=== PATIENT | male | born 1990 | race African-American/Black ===

== ENCOUNTER 2021-03-01 06:23 | Emergency (ER) | payer SELFPAY ==
[~2021-03-01] VITALS: Ht 190.5 cm; Wt 130.0 kg
[2021-03-01 06:25] VITALS: BP 126/85
[2021-03-01] MEDS ORDERED: DIPH,PERTUSS(ACELL),TET VAC/PF 0.5 ML IM-VACC ONE ×2 (06:49→07:00)
[2021-03-01] MEDS ORDERED: LIDOCAINE-MPF 1%, 5ML ONE (06:49)
--- NOTE | 2021-03-01 06:53 | NUR ---
RAD IN ROOM.
[2021-03-01] MEDS ORDERED: LIDOCAINE-MPF 1%, 5ML INFIL ONE (07:00)
--- NOTE | 2021-03-01 07:01 | NUR ---
ROMELIA MARTIN AT BEDSIDE.
[2021-03-01] MEDS ORDERED: NEOSPORIN OINT. PKT 1 PACKET ONE (07:41)
--- NOTE | 2021-03-01 08:02 | NUR ---
Patient given discharge instructions and they have confirmed that they understand the instructions. Patient ambulatory with steady gait.
== END 2021-03-01 08:03 | disposition home or self-care (01) ==
LOC: ED 08:00
DX: S81.811A Laceration without foreign body, right lower leg, initial encounter (principal); X58.XXXA Exposure to other specified factors, initial encounter; Y93.89 Activity, other specified; Y92.89 Other specified places as the place of occurrence of the external cause; Y99.8 Other external cause status
CPT/HCPCS: 12032; 90471; 90715; 99284

== ENCOUNTER 2021-03-10 08:43 | Emergency (ER) | payer SELFPAY ==
[~2021-03-10] VITALS: Ht 190.5 cm; Wt 125.1 kg
--- NOTE | 2021-03-10 08:57 | NUR ---
Ambulatory to ED room 10 w/ limping gait
--- NOTE | 2021-03-10 09:00 | NUR ---
RT ANKLE SUTURE SITE: EDGES APPROXIMATED, SLIGHT SWELLING TO SIGHT, NO DISCHARGE, NO REDNESS, PT DENIES PAIN. 11 SUTURES PRESENT.
--- NOTE | 2021-03-10 09:08 | NUR ---
PROVIDER AT BS FOR SUTURE REMOVAL.
--- NOTE | 2021-03-10 09:43 | NUR ---
Steri-stips applied to lac site. Care instructions discussed w/ patient; understanding verbalized.
[2021-03-10 09:55] VITALS: BP 129/79
== END 2021-03-10 09:57 | disposition home or self-care (01) ==
LOC: ED 08:47
DX: S91.011D Laceration without foreign body, right ankle, subsequent encounter (principal); X58.XXXD Exposure to other specified factors, subsequent encounter
CPT/HCPCS: 99282

== ENCOUNTER 2021-03-14 06:29 | Emergency (ER) | payer SELFPAY ==
[~2021-03-14] VITALS: Ht 190.5 cm; Wt 128.0 kg
[2021-03-14 06:37] VITALS: BP 140/77
== END 2021-03-14 07:45 | disposition home or self-care (01) ==
LOC: ED 07:44
DX: S91.011D Laceration without foreign body, right ankle, subsequent encounter (principal); Z48.01 Encounter for change or removal of surgical wound dressing; X58.XXXD Exposure to other specified factors, subsequent encounter
CPT/HCPCS: 99281

== ENCOUNTER 2021-03-15 08:19 | Emergency (ER) | payer SELFPAY ==
[~2021-03-15] VITALS: Ht 190.5 cm; Wt 125.5 kg
[2021-03-15 08:29] VITALS: BP 153/100
--- NOTE | 2021-03-15 09:56 | NUR ---
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
[2021-03-15] MEDS ORDERED: DEXAMETHASONE 4 MG TABLET PO ONE (10:30)
[2021-03-15] MEDS ORDERED: DEXAMETHASONE 4 MG TABLET ONE (11:04)
== END 2021-03-15 11:12 | disposition home or self-care (01) ==
LOC: ED 09:11
DX: J02.8 Acute pharyngitis due to other specified organisms (principal); B97.89 Other viral agents as the cause of diseases classified elsewhere
CPT/HCPCS: 87081; 87880; 99282; 99283